=== PATIENT | male | born 1960 | race Caucasian/White ===

== ENCOUNTER 2017-10-07 02:51 | Emergency (ER) | payer OTHER ==
[~2017-10-07] VITALS: Ht 175.3 cm; Wt 108.0 kg
[2017-10-07 03:06] VITALS: Ht 175.3 cm; Wt 108.0 kg
[2017-10-07 09:02] VITALS: BP 130/75
== END 2017-10-07 09:02 | disposition home or self-care (01) ==
LOC: ED 02:51
DX: S06.0X0A Concussion without loss of consciousness, initial encounter (principal); S13.4XXA Sprain of ligaments of cervical spine, initial encounter; S43.401A Unspecified sprain of right shoulder joint, initial encounter; S73.102A Unspecified sprain of left hip, initial encounter; M25.562 Pain in left knee; I10 Essential (primary) hypertension; E11.9 Type 2 diabetes mellitus without complications; E78.00 Pure hypercholesterolemia, unspecified; V49.9XXA Car occupant (driver) (passenger) injured in unspecified traffic accident, initial encounter; Y93.89 Activity, other specified; Y92.89 Other specified places as the place of occurrence of the external cause; Y99.8 Other external cause status
CPT/HCPCS: 72072; J8597; Q0162